=== PATIENT | female | born 1955 | race Caucasian/White ===

== ENCOUNTER 2017-11-12 07:04 | Inpatient (IN) | payer OTHER ==
[~2017-11-12] VITALS: Ht 154.9 cm; Wt 98.6 kg
[~2017-11-12 07:04] MED LIST: ATOR20TA86 PO; BACITRACIN 50,000 UNITS/VIAL ONE; BUPIVACAINE LIPOSOME/PF 1.3%-13.3MG/ML SUSPENSION 20 ML VIAL INJ ONE; CHL25 PO; CLON.3 PO; CYAN1TAB44 PO; RINGERS SOLUTION,LACTATED 1,000 ML IV ONE; SODIUM CL IRRIG SOLN BAG 3,000 ML IRRIG ONE; SPIR25 PO; TRANEXAMIC ACID 1,000 MG in DEXTROSE 5%-WATER 50 ML IV ONE
[2017-11-12] MEDS ORDERED: RINGERS SOLUTION,LACTATED 1,000 ML IV ONE ×2 (07:30→08:00)
[2017-11-12 09:11] LABS: INR 1.1 (0.9-1.1); PROTHROMBIN TIME 11.6 SEC (9.4-11.6)
[2017-11-12 09:12] LABS: BASOPHILS % (AUTO) 0.4 % (0.0-2.0); HEMATOCRIT 42.5 % (36-46); HEMOGLOBIN 14.6 g/dL (12.0-16.0); LYMPHOCYTES % (AUTO) 18.6 % (22.0-44.0); MEAN CORPUSCULAR HEMOGLOBIN 31.5 pg (26.0-34.0); MEAN CORPUSCULAR HGB CONC 34.4 G/dL (31.0-37.0); MEAN CORPUSCULAR VOLUME 92 fL (80-100); MONOCYTES % (AUTO) 6.8 % (2.0-9.0); NEUTROPHILS % (AUTO) 72.2 % (40.0-70.0); PLATELET COUNT (AUTO) 267 K/uL (150-450); RED BLOOD CELL COUNT(AUTO) 4.63 MIL/uL (4.00-5.20); RED CELL DISTRIBUTION WIDTH 13.5 % (11.5-14.5)
[2017-11-12 09:13] LABS: LYMPHOCYTES # (AUTO) 1.6 K/uL (1.0-4.8); MONOCYTES # (AUTO) 0.6 K/uL (0.1-1.0); NEUTROPHILS # (AUTO) 6.3 K/uL (1.8-7.7)
[2017-11-12 09:17] LABS: CREATININE 1.19 mg/dL (0.60-1.30)
[2017-11-12 09:18] LABS: ALBUMIN 3.7 g/dL (3.4-5.0); BILIRUBIN,TOTAL 0.6 mg/dL (0.1-1.0); CALCIUM, TOTAL 8.9 mg/dL (8.8-10.5); TOTAL PROTEIN, SERUM 7.7 g/dL (6.4-8.2)
[2017-11-12] MEDS ORDERED: VANCOMYCIN HCL 1 GM/VIAL ONE (09:50)
[2017-11-12] MEDS ORDERED: SODIUM CHLORIDE 0.9% 50 ML ONE (09:50)
[2017-11-12 09:54] LABS: APPEARANCE,URINE CLEAR (CLEAR); BILIRUBIN,URINE NEGATIVE (NEGATIVE); GLUCOSE, URINE (UA) NEGATIVE (NEGATIVE); KETONES,URINE NEGATIVE (NEGATIVE); LEUKOCYTE ESTERASE ,URINE SMALL (NEGATIVE); NITRATE,URINE NEGATIVE (NEGATIVE); OCCULT BLOOD,URINE NEGATIVE (NEGATIVE); PH,URINE 6.5 (5.0-8.0); PROTEIN,URINE NEGATIVE (NEGATIVE); UROBILINOGEN,URINE 0.2 mg/dL (<=1.0)
[2017-11-12 10:08] LABS: BACTERIA,URINE None Seen /HPF (None Seen); RBC,URINE None Seen /HPF (0-2); SQUAMOUS EPITHELIAL CELL,UR Few /LPF (None Seen); WBC,URINE 0-2 /HPF (0-5)
[2017-11-12] MEDS ORDERED: KETAMINE HCL 50 MG/ML 10 ML VIAL IVP ONE (12:00)
[2017-11-12] MEDS ORDERED: ONDANSETRON HCL 4 MG/2 ML VIAL IVP PRN (12:00)
[2017-11-12] MEDS ORDERED: BENZOCAINE/MENTHOL LOZENGE PO PRN (12:00)
[2017-11-12] MEDS ORDERED: BISACODYL 10 MG RECTAL RECTAL SUPPOSITORY PR PRN (12:00)
[2017-11-12] MEDS ORDERED: MAG HYDROX/AL HYDROX/SIMETH 30 ML SUSP UDCUP PO PRN (12:00)
[2017-11-12] MEDS ORDERED: DiphenhydrAMINE HCL 50 MG/ML VIAL IVP PRN (12:00)
[2017-11-12] MEDS ORDERED: MIDAZOLAM HCL 2 MG/2 ML VIAL IVP ONE (12:00)
[2017-11-12] MEDS ORDERED: HYDROmorphone 2 MG/ML SYRINGE ONE (12:20)
[2017-11-12] MEDS: HYDROmorphone 2 MG/ML SYRINGE IVP PRN (12:23)
[2017-11-12] MEDS ORDERED: ONDANSETRON HCL 4 MG/2 ML VIAL ONE (12:28)
[2017-11-12] MEDS: SODIUM CHLORIDE 0.9% 1,000 ML IV SCH ×2 (13:33→23:16)
[2017-11-12 13:39] VITALS: BP 165/77
[2017-11-12] MEDS ORDERED: PNEUMOCOCCAL VACCINE POLYVALENT 0.5 ML VIAL [PPSV23] IM ONE (15:15)
[2017-11-12 15:21] VITALS: BP 147/61
[2017-11-12] MEDS: ACETAMINOPHEN 1000 MG/ISO-OSM 100 ML IV SCH ×2 (16:54→23:10)
[2017-11-12] MEDS: CeFAZolin 1 GM/DEXTROSE 50 ML IV SCH (17:25)
[2017-11-12 19:44] VITALS: BP 137/62
[2017-11-12] MEDS: ATORVASTATIN CALCIUM 20 MG TABLET PO SCH (20:14)
[2017-11-12] MEDS: CYCLOBENZAPRINE HCL 10 MG TABLET PO SCH (20:15)
[2017-11-12] MEDS: DOCUSATE SODIUM 100 MG CAPSULE PO SCH (20:15)
[2017-11-12] MEDS: OXYGEN THERAPY IH SCH (20:15)
[2017-11-12 23:21] VITALS: BP 157/70
[2017-11-13] MEDS: CeFAZolin 1 GM/DEXTROSE 50 ML IV SCH (01:04)
[2017-11-13 04:30] VITALS: BP 156/63
[2017-11-13] MEDS: ACETAMINOPHEN 1000 MG/ISO-OSM 100 ML IV SCH ×2 (05:19→10:36)
[2017-11-13 06:20] LABS: BASOPHILS % (AUTO) 0.1 % (0.0-2.0); CALCIUM, TOTAL 8.5 mg/dL (8.8-10.5); CREATININE 0.94 mg/dL (0.60-1.30); EOSINOPHILS % (AUTO) 0 % (1.0-6.0); HEMATOCRIT 37.7 % (36-46); HEMOGLOBIN 13.1 g/dL (12.0-16.0); LYMPHOCYTES # (AUTO) 0.8 K/uL (1.0-4.8); LYMPHOCYTES % (AUTO) 5.4 % (22.0-44.0); MEAN CORPUSCULAR HGB CONC 34.7 G/dL (31.0-37.0); MEAN CORPUSCULAR VOLUME 92 fL (80-100); MONOCYTES # (AUTO) 0.7 K/uL (0.1-1.0); MONOCYTES % (AUTO) 4.3 % (2.0-9.0); NEUTROPHILS # (AUTO) 14.1 K/uL (1.8-7.7); PLATELET COUNT (AUTO) 236 K/uL (150-450); POTASSIUM 3.9 mmol/L (3.5-5.1); RED BLOOD CELL COUNT(AUTO) 4.08 MIL/uL (4.00-5.20); RED CELL DISTRIBUTION WIDTH 13.3 % (11.5-14.5)
[2017-11-13 06:50] LABS: NEUTROPHILS % (AUTO) 90.2 % (40.0-70.0)
[2017-11-13] MEDS: OXYGEN THERAPY IH SCH ×2 (08:00→20:00)
[2017-11-13 08:28] VITALS: BP 132/54
[2017-11-13] MEDS: DOCUSATE SODIUM 100 MG CAPSULE PO SCH ×2 (08:47→20:36)
[2017-11-13] MEDS: CYCLOBENZAPRINE HCL 10 MG TABLET PO SCH ×2 (08:47→20:35)
[2017-11-13] MEDS: SPIRONOLACTONE 25 MG TABLET PO SCH (08:48)
[2017-11-13] MEDS: CHLORTHALIDONE 25 MG TABLET PO SCH (08:48)
[2017-11-13] MEDS ORDERED: RIVAROXABAN 10 MG TABLET PO SCH ×2 (10:00)
[2017-11-13] MEDS: HYDROmorphone 2 MG/ML SYRINGE IVP PRN ×2 (10:37→15:02)
[2017-11-13 12:19] VITALS: BP 138/57
[2017-11-13] MEDS ORDERED: DEXTROSE 50%-WATER 25 GM/50 ML SYRINGE IVP PRN (12:30)
[2017-11-13 16:18] VITALS: BP 123/53
[2017-11-13] MEDS: INSULIN LISPRO 100 UNITS/ML SQ PRN ×2 (17:22→21:12)
[2017-11-13] MEDS: RIVAROXABAN 10 MG TABLET PO SCH (17:54)
[2017-11-13 18:54] LABS: GLUCOMETER DEV NAME(LOC) PV 4E2; GLUCOSE,POINT OF CARE 162 MG/DL (70-110)
[2017-11-13 19:27] VITALS: BP 112/54
[2017-11-13] MEDS: ATORVASTATIN CALCIUM 20 MG TABLET PO SCH (20:35)
[2017-11-13] MEDS: OxyCODONE HCL/ACETAMINOPHEN 10-325 MG TABLET PO PRN (20:35)
[2017-11-13 23:25] VITALS: BP 115/51
[2017-11-14] MEDS: OxyCODONE HCL/ACETAMINOPHEN 10-325 MG TABLET PO PRN ×6 (00:19→23:56)
[2017-11-14 00:42] LABS: GLUCOMETER DEV NAME(LOC) PV 4E2; GLUCOSE,POINT OF CARE 163 MG/DL (70-110)
[2017-11-14 04:39] VITALS: BP 119/55
[2017-11-14 06:35] LABS: GLUCOMETER DEV NAME(LOC) PV 4E2; GLUCOSE,POINT OF CARE 134 MG/DL (70-110)
[2017-11-14 06:49] LABS: BASOPHILS % (AUTO) 0.3 % (0.0-2.0); EOSINOPHILS % (AUTO) 3.4 % (1.0-6.0); HEMATOCRIT 36.4 % (36-46); HEMOGLOBIN 12.4 g/dL (12.0-16.0); LYMPHOCYTES % (AUTO) 17.6 % (22.0-44.0); MEAN CORPUSCULAR HEMOGLOBIN 31.4 pg (26.0-34.0); MEAN CORPUSCULAR HGB CONC 33.9 G/dL (31.0-37.0); MEAN CORPUSCULAR VOLUME 93 fL (80-100); MONOCYTES # (AUTO) 1.1 K/uL (0.1-1.0); MONOCYTES % (AUTO) 9.1 % (2.0-9.0); NEUTROPHILS # (AUTO) 8.1 K/uL (1.8-7.7); NEUTROPHILS % (AUTO) 69.6 % (40.0-70.0); PLATELET COUNT (AUTO) 210 K/uL (150-450); RED BLOOD CELL COUNT(AUTO) 3.93 MIL/uL (4.00-5.20); RED CELL DISTRIBUTION WIDTH 13.9 % (11.5-14.5)
[2017-11-14 08:00] VITALS: BP 137/62
[2017-11-14] MEDS: DOCUSATE SODIUM 100 MG CAPSULE PO SCH ×2 (09:00→21:21)
[2017-11-14] MEDS: CHLORTHALIDONE 25 MG TABLET PO SCH (09:35)
[2017-11-14] MEDS: SPIRONOLACTONE 25 MG TABLET PO SCH (09:35)
[2017-11-14] MEDS: CYCLOBENZAPRINE HCL 10 MG TABLET PO SCH ×2 (09:38→21:21)
[2017-11-14] MEDS: INSULIN LISPRO 100 UNITS/ML SQ PRN ×2 (11:42→21:41)
[2017-11-14 14:03] LABS: GLUCOMETER DEV NAME(LOC) PV 4E2; GLUCOSE,POINT OF CARE 182 MG/DL (70-110)
[2017-11-14 14:44] VITALS: BP 129/56
[2017-11-14 16:25] VITALS: BP 129/57
[2017-11-14] MEDS: RIVAROXABAN 10 MG TABLET PO SCH (18:44)
[2017-11-14 19:50] VITALS: BP 149/57
[2017-11-14] MEDS: OXYGEN THERAPY IH SCH (20:00)
[2017-11-14] MEDS: ATORVASTATIN CALCIUM 20 MG TABLET PO SCH (21:21)
[2017-11-14 21:44] LABS: GLUCOMETER DEV NAME(LOC) PV 4E2; GLUCOSE,POINT OF CARE 147 MG/DL (70-110)
[2017-11-14 21:44] LABS: GLUCOMETER DEV NAME(LOC) PV 4E2; GLUCOSE,POINT OF CARE 184 MG/DL (70-110)
[2017-11-14 23:22] VITALS: BP 125/59
[2017-11-15 05:04] VITALS: BP 139/58
[2017-11-15] MEDS: OxyCODONE HCL/ACETAMINOPHEN 10-325 MG TABLET PO PRN (05:14)
[2017-11-15] MEDS: INSULIN LISPRO 100 UNITS/ML SQ PRN ×2 (05:38→13:17)
[2017-11-15] MEDS ORDERED: RIVA10 PO (05:52)
[2017-11-15 05:53] LABS: GLUCOMETER DEV NAME(LOC) PV 4E2; GLUCOSE,POINT OF CARE 141 MG/DL (70-110)
[2017-11-15] MEDS ORDERED: OXYC-38 PO (05:57)
[2017-11-15 06:09] LABS: BASOPHILS % (AUTO) 0.4 % (0.0-2.0); EOSINOPHILS % (AUTO) 4.3 % (1.0-6.0); HEMATOCRIT 36.2 % (36-46); HEMOGLOBIN 12.6 g/dL (12.0-16.0); LYMPHOCYTES # (AUTO) 1.8 K/uL (1.0-4.8); LYMPHOCYTES % (AUTO) 16.5 % (22.0-44.0); MEAN CORPUSCULAR HGB CONC 34.8 G/dL (31.0-37.0); MEAN CORPUSCULAR VOLUME 92 fL (80-100); MONOCYTES # (AUTO) 1.2 K/uL (0.1-1.0); MONOCYTES % (AUTO) 10.8 % (2.0-9.0); NEUTROPHILS # (AUTO) 7.3 K/uL (1.8-7.7); PLATELET COUNT (AUTO) 194 K/uL (150-450); RED BLOOD CELL COUNT(AUTO) 3.93 MIL/uL (4.00-5.20); RED CELL DISTRIBUTION WIDTH 13.3 % (11.5-14.5)
[2017-11-15 07:54] VITALS: BP 118/51
[2017-11-15] MEDS: CHLORTHALIDONE 25 MG TABLET PO SCH (08:53)
[2017-11-15] MEDS: SPIRONOLACTONE 25 MG TABLET PO SCH (08:53)
[2017-11-15] MEDS: DOCUSATE SODIUM 100 MG CAPSULE PO SCH (08:53)
[2017-11-15] MEDS: CYCLOBENZAPRINE HCL 10 MG TABLET PO SCH (08:53)
[2017-11-15 11:56] VITALS: BP 128/59
[2017-11-15 13:23] LABS: GLUCOMETER DEV NAME(LOC) PV 4E2; GLUCOSE,POINT OF CARE 202 MG/DL (70-110)
== END 2017-11-15 14:00 | DRG 302 ==
LOC: 4E 07:04
PROVIDERS: ADMIT Orthopaedic Surgery; ATTEND Orthopaedic Surgery
PROC: 0SRC0J9 Replacement of Right Knee Joint with Synthetic Substitute, Cemented, Open Approach (ICD-10-PCS; principal; 2017-11-12 10:00)
DX: M17.11 Unilateral primary osteoarthritis, right knee (principal); I11.0 Hypertensive heart disease with heart failure; E44.0 Moderate protein-calorie malnutrition; I50.9 Heart failure, unspecified; E11.65 Type 2 diabetes mellitus with hyperglycemia; E66.01 Morbid (severe) obesity due to excess calories; Z68.41 Body mass index [BMI] 40.0-44.9, adult; D72.829 Elevated white blood cell count, unspecified; E78.5 Hyperlipidemia, unspecified; Z88.0 Allergy status to penicillin; Z88.8 Allergy status to other drugs, medicaments and biological substances
CPT/HCPCS: 83036; 87081; 88300; 93005; 97110; 97116; 97162; 97530; 97535; C9290; G0238; J0131; J0690; J1170; J2250; J2405; J3370; J3490; J7030; J7050; J7060; J7120